=== PATIENT | male | born 1975 | race Caucasian/White ===

== ENCOUNTER 2017-09-08 06:44 | Inpatient (IN) | payer BC ==
[2017-09-08] MEDS ORDERED: NS 1,000 ML IV ONE ×3 (06:48→07:58)
[2017-09-08 06:56] LABS: % IMMATURE GRANULYOCYTES 0.5 % (0.0-1.1); ABSOLUTE IMMATURE GRANULOCYTES 0.07 10^3/uL (0.00-0.10); ADD DIFF? NO; ADD MORPH? NO; ADD SCAN? NO; ATYPICAL LYMPHOCYTE FLAG 0 (0-99); FRAGMENT RBC FLAG 0 (0-99); HEMATOCRIT 53.5 % (40.0-51.0); HEMOGLOBIN 18.2 g/dL (13.7-17.5); LEFT SHIFT FLG 10 (0-99); LIPEMIA HEMOLYSIS FLAG 90 (0-99); MEAN CELL HEMOGLOBIN 29.9 pg (27.9-34.1); MEAN PLATELET VOLUME 9.6 fL (8.7-11.7); PLATELET CLUMPS FLAG 0 (0-99); PLATELET COUNT 288 10^3/uL (150-400); RED BLOOD CELL COUNT 6.08 10^6/uL (4.40-6.38); RED CELL DISTRIBUTION WIDTH 14.1 % (11.5-15.2)
[2017-09-08 07:11] LABS: ALANINE AMINOTRANSFERASE 56 IU/L (21-72); ALBUMIN 4.4 g/dL (3.5-5.0); ALKALINE PHOSPHATASE 92 IU/L (38-126); ANION GAP 20 mEq/L (8-16); ASPARTATE AMINOTRANSFERASE 29 IU/L (17-59); BILIRUBIN,TOTAL 1.4 mg/dL (0.1-1.4); BILIRUBIN-CONJUGATED 0.3 mg/dL (0.0-0.5); BILIRUBIN-UNCONJUGATED 1.1 mg/dL (0.0-1.1); CALCIUM 9.8 mg/dL (8.5-10.4); CARBON DIOXIDE 22 mEq/l (22-31); CHLORIDE 100 mEq/L (97-110); CREATININE 1.4 mg/dL (0.7-1.3); GLOMERULAR FILTRATION RATE 56; GLUCOSE 168 mg/dL (70-100); POTASSIUM 4.9 mEq/L (3.5-5.2); SODIUM 142 mEq/L (134-144); TOTAL PROTEIN 7.4 g/dL (6.3-8.2)
--- NOTE | 2017-09-08 07:23 | EDPHY ---
H & P Time Seen by Provider: 09/08/17 07:06 HPI/ROS: CHIEF COMPLAINT: Vomiting and diarrhea HISTORY OF PRESENT ILLNESS: The patient is a 42-year-old diabetic who presents emergency department with significant nausea, vomiting and diarrhea. The patient states that he ate dinner at 830. He had chicken enchilada with sour cream that was out of date. At 11 he woke up with significant nausea, vomiting diarrhea. His diarrhea and vomiting or nonbloody. He denies fever or chills. He has mild diffuse abdominal cramping. He states he has been unable to keep any liquids down. No dysuria or frequency REVIEW OF SYSTEMS: My complete review of systems is negative except as mentioned in the HPI. Past Medical/Surgical History: Includes diabetes, hypertension, sleep apnea, hyperlipidemia Past surgical history: Negative Social history: The patient does not smoke. Smoking Status: Current every day smoker Physical Exam: Vitals noted. 36.7, 113, 18. There is no blood pressure from his triage note. Once he was in the room his blood pressure was 109/87 GENERAL: mild acute distress, alert. Obese. HEENT: Eyes normal to inspection, dry mucous membranes. NECK: No thyromegaly, no lymphadenopathy, supple. RESPIRATORY: Clear to auscultation bilaterally, no rales, rhonchi or wheezing. CVS: Regular rate and rhythm, no rubs, murmurs, or gallops. ABDOMEN: Soft, nontender, nondistended, no organomegaly. Benign. BACK: Normal to inspection, no CVA tenderness. SKIN: Normal color, no rash, warm, dry. No pallor. EXTREMITIES: No pedal edema, no calf tenderness, no Homans sign or cords, no joint swelling. NEURO/PSYCH: Alert and oriented x3, normal mood and affect, normal motor sensory exam. Constitutional: Initial Vital Signs Temperature (C) 36.7 C 09/08/17 06:47 Heart Rate 113 H 09/08/17 06:47 Respiratory Rate 18 09/08/17 06:47 O2 Sat (%) 89 L 09/08/17 06:47 O2 Delivery Mode Nasal Cannula O2 (L/minute) 2 Allergies/Adverse Reactions: No Known Allergies Allergy (Verified 09/08/17 06:46) Home Medications: Medication Instructions Recorded Lisinopril/Hctz 20/12.5MG 1 ea PO DAILY #30 tab 06/08/15 [Zestoretic/Prinzide 20/12.5MG (*)] Amlodipine Besylate 09/08/17 Atorvastatin Calcium 09/08/17 Metformin HCl 09/08/17 Ondansetron Odt [Zofran Odt 4 mg 4 mg PO Q4PRN PRN #7 tab 09/08/17 (*)] Medical Decision Making ED Course/Re-evaluation: In the emergency department I discussed possible etiologies with the patient. I answered all his questions. Mess had placed an IV. The patient given 2 L of normal saline for hydration. Laboratory studies were obtained. Patient's chemistry panel was notable for an elevated creatinine 1.4. His glucose was 168. [place] [address]. Hematocrit was 53. 800: Patient is resting comfortably. No new complaints. 830: The patient is given an oral challenge with liquid. Patient had an episode of diarrhea in his bed. Patient ambulated to the bathroom. Became extremely nauseated when he ambulated the bathroom. On recheck the patient stated he felt too ill to sit up in bed. His abdomen was soft, nontender nondistended. Because of this I spoke with the hospitalist service. Patient will be admitted for further treatment and evaluation. Differential Diagnosis: My differential includes but is not limited to obstruction, pancreatitis, cholecystitis, cholangitis, electrolyte abnormality, sugar abnormality, dehydration, viral illness, food poisoning - Data Points Laboratory Results: Laboratory Results 09/08/17 06:50 09/08/17 06:50 09/08/17 09/08/17 09/08/17 10:20 06:50 06:50 WBC 15.26 10^3/uL H 10^3/uL (3.80-9.50) RBC 6.08 10^6/uL 10^6/uL (4.40-6.38) Hgb 18.2 g/dL H g/dL (13.7-17.5) Hct 53.5 % H % (40.0-51.0) MCV 88.0 fL fL (81.5-99.8) MCH 29.9 pg pg (27.9-34.1) MCHC 34.0 g/dL g/dL (32.4-36.7) RDW 14.1 % % (11.5-15.2) Plt Count 288 10^3/uL 10^3/uL (150-400) MPV 9.6 fL fL (8.7-11.7) Neut % (Auto) 88.4 % H % (39.3-74.2) Lymph % (Auto) 5.4 % L % (15.0-45.0) [place] % (Auto) 5.2 % % (4.5-13.0) Eos % (Auto) 0.2 % L % (0.6-7.6) Baso % (Auto) 0.3 % % (0.3-1.7) Nucleat RBC Rel Count 0.0 % % (0.0-0.2) Absolute Neuts (auto) 13.51 10^3/uL H 10^3/uL (1.70-6.50) Absolute Lymphs (auto) 0.82 10^3/uL L 10^3/uL (1.00-3.00) Absolute Monos (auto) 0.79 10^3/uL 10^3/uL (0.30-0.80) Absolute Eos (auto) 0.03 10^3/uL 10^3/uL (0.03-0.40) Absolute Basos (auto) 0.04 10^3/uL 10^3/uL (0.02-0.10) Absolute Nucleated RBC 0.00 10^3/uL 10^3/uL (0-0.01) Immature Gran % 0.5 % % (0.0-1.1) Immature Gran # 0.07 10^3/uL 10^3/uL (0.00-0.10) Sodium 142 mEq/L mEq/L (134-144) Potassium 4.9 mEq/L mEq/L (3.5-5.2) Chloride 100 mEq/L mEq/L (97-110) Carbon Dioxide 22 mEq/l mEq/l (22-31) Anion Gap 20 mEq/L H mEq/L (8-16) BUN 20 mg/dL mg/dL (7-23) Creatinine 1.4 mg/dL H mg/dL (0.7-1.3) Estimated GFR 56 Glucose 168 mg/dL H mg/dL (70-100) Calcium 9.8 mg/dL mg/dL (8.5-10.4) Total Bilirubin 1.4 mg/dL mg/dL (0.1-1.4) Conjugated Bilirubin 0.3 mg/dL mg/dL (0.0-0.5) Unconjugated Bilirubin 1.1 mg/dL mg/dL (0.0-1.1) AST 29 IU/L IU/L (17-59) ALT 56 IU/L IU/L (21-72) Alkaline Phosphatase 92 IU/L IU/L (38-126) Total Protein 7.4 g/dL g/dL (6.3-8.2) Albumin 4.4 g/dL g/dL (3.5-5.0) Lipase 77 IU/L IU/L (23-300) Urine Color Pending Urine Appearance Pending Urine pH Pending Ur Specific [place] Pending Urine Protein Pending Urine Ketones Pending Urine Blood Pending Urine Nitrate Pending Urine Bilirubin Pending Urine Urobilinogen Pending Ur Leukocyte Esterase Pending Urine Glucose Pending Medications Given: Discontinued Medications Sodium Chloride (Ns) 1,000 mls @ 0 mls/hr IV EDNOW ONE; Wide Open PRN Reason: Protocol Stop: 09/08/17 06:49 Last Admin: 09/08/17 06:51 Dose: 1,000 mls Sodium Chloride (Ns) 1,000 mls @ 0 mls/hr IV ONCE ONE PRN Reason: Wide Open Stop: 09/08/17 07:30 Last Admin: 09/08/17 07:30 Dose: 1,000 mls Sodium Chloride (Ns) 1,000 mls @ 0 mls/hr IV ONCE ONE PRN Reason: Wide Open Stop: 09/08/17 07:59 Last Admin: 09/08/17 07:59 Dose: 1,000 mls Ondansetron HCl (Zofran) 4 mg IVP EDNOW ONE Stop: 09/08/17 10:17 Last Admin: 09/08/17 10:19 Dose: 4 mg Departure - Departure Disposition: [facility] Acute Clinical Impression: Diarrhea Qualifiers: Diarrhea type: unspecified type Qualified Code(s): R19.7 - Diarrhea, unspecified Vomiting Qualifiers: Vomiting type: unspecified Vomiting Intractability: non-intractable Nausea presence: with nausea Qualified Code(s): R11.2 - Nausea with vomiting, unspecified Condition: Good Instructions: Acute Nausea and Vomiting (ED), Acute Diarrhea (ED) Referrals: Patient,NotPresent [Unknown] - As per Instructions Prescriptions: Ondansetron Odt [Zofran Odt 4 mg (*)] 4 mg PO Q4PRN PRN #7 tab PRN Reason: For Nausea & Vomiting
[2017-09-08] MEDS ORDERED: ONDANSETRON 4 MG/2 ML VIAL IVP ONE (10:16)
[2017-09-08 10:31] LABS: COLOR YELLOW; LEUKOCYTE ESTERASE,URINE NEGATIVE (NEGATIVE); NITRITE,URINE NEGATIVE (NEGATIVE)
[2017-09-08] MEDS ORDERED: PROMETHAZINE HCL 25 MG/ML INJ IVP PRN (11:12)
[2017-09-08] MEDS ORDERED: METOCLOPRAMIDE 10 MG/2 ML VIAL IVP PRN (11:12)
[2017-09-08] MEDS ORDERED: ACETAMINOPHEN 325 MG TAB PO PRN (11:12)
[2017-09-08] MEDS ORDERED: ONDANSETRON DISINTEGRATING 4 MG TAB PO PRN (11:12)
[2017-09-08] MEDS ORDERED: ONDANSETRON 4 MG/2 ML VIAL IVP PRN (11:12)
[2017-09-08 12:50] LABS: % IMMATURE GRANULYOCYTES 0.3 % (0.0-1.1); ABSOLUTE IMMATURE GRANULOCYTES 0.02 10^3/uL (0.00-0.10); ADD DIFF? NO; ADD MORPH? NO; ADD SCAN? NO; ATYPICAL LYMPHOCYTE FLAG 0 (0-99); FRAGMENT RBC FLAG 0 (0-99); HEMATOCRIT 46.8 % (40.0-51.0); HEMOGLOBIN 16.2 g/dL (13.7-17.5); LEFT SHIFT FLG 10 (0-99); LIPEMIA HEMOLYSIS FLAG 90 (0-99); MEAN CELL HEMOGLOBIN 30.6 pg (27.9-34.1); MEAN CELL HEMOGLOBIN CONCENTR. 34.6 g/dL (32.4-36.7); MEAN CELL VOLUME 88.3 fL (81.5-99.8); MEAN PLATELET VOLUME 9.3 fL (8.7-11.7); PLATELET CLUMPS FLAG 0 (0-99); PLATELET COUNT 210 10^3/uL (150-400); RED CELL DISTRIBUTION WIDTH 14.1 % (11.5-15.2)
[2017-09-08] MEDS ORDERED: D50W 25 GM/50 ML SYR IVP PRN (12:58)
--- NOTE | 2017-09-08 14:22 | GHP ---
[f rep st] HISTORY AND PHYSICAL DATE OF ADMISSION: 09/08/2017 HISTORY OF PRESENT ILLNESS: The patient is a pleasant 42-year-old gentleman with past medical histor y of likely obstructive sleep apnea, diabetes, morbid obesity, and hypertension who presents with vaughn sea and vomiting. He was feeling well yesterday. He ate some and questionable sour cream la st night. In the middle of the night, he was woken up with some vomiting and diarrhea. No hematemes is. No coffee-ground emesis. There may have been some dark diarrhea. He took antibiotics in the fo rm of amoxicillin for ear infection within the last 6 months. He has no history of C difficile. REVIEW OF SYSTEMS: Complete 10-point review of systems conducted and negative, except as in the HPI. PAST MEDICAL HISTORY: 1. Diabetes. Last A1c of 7.4. 2. Morbid obesity with BMI of 51. 3. Hypertension. 4. Reflux. 5. Hyperlipidemia. ALLERGIES: No known drug allergies. MEDICATIONS: Metformin, which he takes intermittently because of the size of the pill, omeprazole, a spirin, lisinopril/hydrochlorothiazide, amlodipine, and atorvastatin. SOCIAL HISTORY: He is . His daughter is getting in December. 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 He has between 4-6 drinks per night, although he h as had many instances where he stopped cold turkey without drinking. He does not smoke cigarettes. FAMILY HISTORY: Reviewed and unremarkable. PHYSICAL EXAMINATION: VITAL SIGNS: Presenting: Temp 36.6, blood pressure 98/58, pulse 93, breathin g at 19 times a minute, 97% on 2 L, 87% on room air. GENERAL: In no acute distress, lying flat. HE ENT: Sclerae anicteric. Oropharynx clear. Mucous membranes are moist. NECK: Supple without lymph adenopathy or JVD. LUNGS: Clear to auscultation bilaterally. HEART: S1, S2. Not tachycardic. AB DOMEN: Soft, obese nontender there is no rebound or guarding. LOWER EXTREMITIES: Without edema, an d there is chronic venous stasis changes of the skin NEUROLOGIC: Nonfocal. LABORATORY/IMAGING: White count 15.3, hematocrit 53.5, platelets are 288,000. Repeat shows hematocr it of 46.8, at baseline, it is actually in the 50s. Sodium 142, potassium 4.9, chloride 100, bicarb 22, BUN 20, creatinine 1.4, glucose 168. LFTs normal. UA is unremarkable. There is no imaging. I have discussed the case with Dr. Brittany Mattson of the emergency department. ASSESSMENT/PLAN: 42-year-old gentle with likely viral gastroenteritis. 1. Viral gastroenteritis. Supportive care with IV fluids, IV antiemetics. 2. Recent antibiotic exposure. Will check Clostridium difficile. 3. Acute kidney injury. His baseline creatinine 0.9. We will give him IV fluids and repeat in the morning. 4. Hematocrit drop. He has had a hematocrit drop since he got here. I suspect he was hemoconcentra alan on presentation. 5. Hypertension. We will hold antihypertensives given his current presentation and hypovolemia. 6. Diabetes. Will hold metformin and give him insulin sliding scale. 7. Prophylaxis. Pharmacologic prophylaxis indicated. Enoxaparin started. DISPOSITION: Observation status. /[id number]/MODL
[2017-09-08] MEDS: INSULIN LISPRO 100 UNIT/ML SC SCH (18:28)
[2017-09-08] MEDS ORDERED: D50W 25 GM/50 ML VIAL IVP PRN (22:00)
[2017-09-08] MEDS: VANCOMYCIN 125 MG/2.5 ML UDL PO SCH (22:44)
[2017-09-09] MEDS: LR 1,000 ML IV SCH ×3 (00:43→21:36)
[2017-09-09] MEDS: VANCOMYCIN 125 MG/2.5 ML UDL PO SCH (05:00)
[2017-09-09 05:38] LABS: ANION GAP 9 mEq/L (8-16); CALCIUM 7.9 mg/dL (8.5-10.4); CARBON DIOXIDE 28 mEq/l (22-31); CHLORIDE 105 mEq/L (97-110); CREATININE 1.1 mg/dL (0.7-1.3); GLOMERULAR FILTRATION RATE > 60; GLUCOSE 101 mg/dL (70-100); POTASSIUM 3.5 mEq/L (3.5-5.2); SODIUM 142 mEq/L (134-144)
[2017-09-09] MEDS: INSULIN LISPRO 100 UNIT/ML SC SCH ×3 (08:00→18:30)
[2017-09-09] MEDS ORDERED: NON-FORMULARY NEW DRUG (Omeprazole Magnesium [Prilosec Otc] 20 MG) PO SCH (09:00)
[2017-09-09] MEDS: ENOXAPARIN 40 MG/0.4 ML SYR SC SCH (10:52)
[2017-09-09] MEDS: PANTOPRAZOLE SODIUM 40 MG TAB PO SCH (10:52)
--- NOTE | 2017-09-09 11:20 | HOSPPROG ---
Hospitalist Progress Note Assessment/Plan: Norovirus with volume depletion - Supportive care. Discussed GI pathogen panel with ID, C diff likely colonization and ID does not recommend tx as norovirus is agent causing illness. -d/c vanco -cont IVF's, anti-emetics -contact / droplet precautions DM type 2 - cont SSI, bg's 90's-100's Hypertension - holding anti-hypertensives due to lowish BP's / volume depletion Hypoxemia - suspect SABIHA, OHS, some sedation. CXR shows peribronchial thickening , no PNA. -wean O2 as able -outpt sleep study, needs sleep apnea treated -likely needs home O2 DVT PPLX - Lovenox Full code Dispo - change to inpt, needs ongoing care for volume depletion and hypoxemia Subjective: Pt feels tired, weak. Some mild abdominal discomfort. No more vomiting today. Diarrhea slowing down. Objective: Vital Signs Temp Pulse Resp BP Pulse Ox 36.5 C 78 18 93/56 L 96 09/09/17 05:05 09/09/17 05:05 09/09/17 05:05 09/09/17 05:05 09/09/17 05:05 Microbiology 09/08/17 15:50 Gastrointestinal Tract Panel (PCR) - Final Stool Clostridium Difficile Detected E.coli Enteropathogenic(Epec) Norovirus Gi/Gii Laboratory Results 09/08/17 12:45 09/09/17 04:55 09/08/17 09/09/17 09/10/17 05:59 05:59 05:59 Intake Total 5441 Balance 5441 - Physical Exam Constitutional: no apparent distress Eyes: PERRL Ears, Nose, Mouth, Throat: moist mucous membranes Cardiovascular: regular rate and rhythym Respiratory: no respiratory distress Gastrointestinal: normoactive bowel sounds, soft, non-tender abdomen Skin: warm Musculoskeletal: full muscle strength Neurologic: AAOx3 Psychiatric: interacting appropriately ICD10 Worksheet Patient Problems: Problems Problem Status Onset Diarrhea Acute Vomiting Acute
--- NOTE | 2017-09-09 12:58 | ASMTCMCOM ---
CM Note CM Note Notes: Pt admitted w/Norovirus, C-Diff. Reviewed chart and discussed w/RN. Anticipate pt will dc home independantly when medically stable. Per progress note pt will need to f/u w/ out pt sleep study for sleep apnea and will likely need home O2. CM will follow for any changes/needs. Date Signed: 09/09/2017 12:57 PM Electronically Signed By:Carrol Delcid RN
--- NOTE | 2017-09-09 17:26 | PDMN ---
Medical Necessity Medical necessity: Patient meets INPT criteria per physician note and MCG M-170 Gastroenteritis (norovirus w/volume depletion; C Diff is likely colonization; holding antihypertensive meds for syst B/P in 's/volume depletion; LOS will be > 2 midnights for ongoing IV hydration and antiemetics for continued diarrhea , ongoing hypoxemia/sat 87% on RA and O2 at 4-5 LPM.)
[2017-09-10 08:10] VITALS: RESP 16
[2017-09-10] MEDS ORDERED: PNEUMOCOCCAL 0.5ML VACCINE VIAL IM ONE (10:47)
[2017-09-10] MEDS ORDERED: FLU VACC QS 2017-18 (3YR+)/PF 0.5 ML SYR (FLUARIX QUAD) IM ONE (10:47)
[2017-09-10] MEDS: PANTOPRAZOLE SODIUM 40 MG TAB PO SCH (10:54)
[2017-09-10] MEDS: INSULIN LISPRO 100 UNIT/ML SC SCH ×2 (10:54→13:14)
[2017-09-10 11:13] VITALS: BP 140/82; PULSE 73; TEMP 98.2; O2SAT 94
[2017-09-10] MEDS: ENOXAPARIN 40 MG/0.4 ML SYR SC SCH (13:13)
--- NOTE | 2017-09-10 16:14 | GDS ---
[f rep st] DISCHARGE SUMMARY DISCHARGE DIAGNOSES: 1. Infectious gastroenteritis secondary to norovirus. 2. Volume depletion secondary to vomiting and diarrhea, resolved. 3. Clostridium difficile colonization. 4. Type 2 diabetes mellitus. 5. Hypertension. 6. Hypoxemia, suspected secondary to obstructive sleep apnea and obesity hypoventilation in addition to sedation. He is weaned off oxygen and is discharged home on room air. 7. Suspected sleep apnea. Needs outpatient sleep study. HISTORY: For details please see the history and physical dated September 08, 2017. In brief, the chandrika ent is a 42-year-old male with a history of diabetes, hypertension, severe obesity and suspected obst ructive sleep apnea who presents to the emergency department with nausea, vomiting, diarrhea. He was admitted to the hospital for supportive care. HOSPITAL COURSE: Patient was admitted to the Medical/Surgical unit. He received IV fluids and antie metics. A GI pathogen panel was positive for norovirus, Clostridium difficile, as well as enteropath ogenic E coli. I discussed the case with Infectious Disease and it is thought he is likely colonized with C difficile and norovirus is likely the causative agent of his illness. It is unclear the rele khan of the enteropathogenic E coli, though there is no specific treatment for this and again norovi aditi most likely explains his acute illness, especially as this has been identified in the community r ecently. His hemodynamics improved with IV fluids. His vomiting and diarrhea resolved. The patient was able to tolerate a full diet on the day of discharge with no pain or recurrence of symptoms. He was provi ded with education regarding diabetes, hypertension, and obstructive sleep apnea and then was instruc alan to follow up for an outpatient sleep study. DISPOSITION: Patient is discharged home in stable condition. FOLLOWUP: Primary care. DISCHARGE MEDICATIONS: Please see [facility] for completed outpatient medication list. There are no n ew medications on discharge. He should continue all other outpatient medications as previously presh. [facility]. /[id number]/MODL
--- NOTE | 2017-09-10 16:33 | ASDISCHSUM ---
Discharge Information Plan Status:Home with No Needs Medically Cleared to Leave:09/09/2017 Discharge Date:09/10/2017 01:42 PM CM D/C Disposition:Home, Routine, Self-Care ADT D/C Disposition:Home, Routine, Self-Care Projected Discharge Date:09/10/2017 01:42 PM Transportation at D/C:Family Discharge Delay Reason: Follow-Up Date:09/10/2017 01:42 PM Discharge Slot: Final Diagnosis: Placement Information Patient Contact Information Contact Name:JAMES Relationship:Father Address:[address] City:[place] Alternate Phone: State/Zip Code:[place] [address] Email: Financial Information Financial Class:HMO and PPO Plans Primary Plan Desc: OUT OF STATE PPO Primary Plan Number:[id number] Secondary Plan Desc: Secondary Plan Number: Assessment Information [facility] CM Progress Note CM Note CM Note Notes: Pt admitted w/Norovirus, C-Diff. Reviewed chart and discussed w/RN. Anticipate pt will dc home independantly when medically stable. Per progress note pt will need to f/u w/ out pt sleep study for sleep apnea and will likely need home O2. CM will follow for any changes/needs. Date Signed: 09/09/2017 12:57 PM Electronically Signed By:Carrol Declid RN Case Management Discharge Plan Note Case Management Discharge Discharge Order Complete? Answers: Yes Patient to Obtain Answers: Independently Medications Transportation Arranged Answers: Family/Friends Discharge Comments Notes: Pt discharging home today with no CM needs. Date Signed: 09/10/2017 01:58 PM Electronically Signed By:Jennyfer Roach, RACKET STRINGER Intervention Information
== END 2017-09-10 13:42 | disposition home or self-care (01) | DRG 392 ==
LOC: EDUNIT# → F1N 11:04 → OBSVTOIN 09-09 11:22
PROVIDERS: ADMIT Internal Medicine; ATTEND Internal Medicine
DX: A08.39 Other viral enteritis (principal); E11.9 Type 2 diabetes mellitus without complications; E66.2 Morbid (severe) obesity with alveolar hypoventilation; Z68.43 Body mass index [BMI] 50.0-59.9, adult; I10 Essential (primary) hypertension; F17.210 Nicotine dependence, cigarettes, uncomplicated; E78.5 Hyperlipidemia, unspecified; K21.9 Gastro-esophageal reflux disease without esophagitis
CPT/HCPCS: 96374; G0008; G0009; G0378; J1650; J2405; J2550